=== PATIENT | female | born 1960 | race Caucasian/White ===

== ENCOUNTER → 2020-12-22 | Outpatient (CLI) | payer MEDICARE, OTHER ==
[~2020-12-22] MED LIST: AUGMENTIN 875-1 EACH PO; BENTYL 10MG CAP10 MG PO; CORDARONE 200M200 MG PO; COZAAR50 MG PO; ELIQUIS5 MG PO; FAMOTIDINE20 MG PO; FOLIC ACID1 MG PO; LOPRESSOR50 MG PO; NORCO 5-325 TA1 EACH PO; RANITIDINE HCL150 MG PO; ZANTAC 150 MG150 MG PO; ZETIA10 MG PO; ZOFRAN ODT 4 MG4 MG PO
== END ==
LOC: EXRD 11-26 15:00
DX: M81.0 Age-related osteoporosis without current pathological fracture (principal); C50.812 Malignant neoplasm of overlapping sites of left female breast; R11.2 Nausea with vomiting, unspecified; Z17.0 Estrogen receptor positive status [ER+]; Z87.891 Personal history of nicotine dependence
CPT/HCPCS: 77080

== ENCOUNTER 2021-04-12 11:59 | Emergency (ER) | payer MEDICARE, OTHER ==
[~2021-04-12 11:59] MED LIST changes: -BENTYL 10MG CAP10 MG PO; -ZOFRAN ODT 4 MG4 MG PO
[2021-04-12 12:55] LABS: RED BLOOD COUNT 4.86 M/UL (4.00-5.10); WHITE BLOOD COUNT 6.9 K/UL (4.5-11.0)
[2021-04-12 13:13] LABS: BUN/CREATININE RATIO 18 (0-10)
[2021-04-12] MEDS ORDERED: ZOFRAN ODT 4 MG4 MG PO (19:16)
[2021-04-12] MEDS ORDERED: BENTYL 10MG CAP10 MG PO (19:16)
== END 2021-04-12 19:25 | disposition home or self-care (01) ==
LOC: ER1 11:59
PROVIDERS: Emergency Medicine
DX: K52.9 Noninfective gastroenteritis and colitis, unspecified (principal); I48.91 Unspecified atrial fibrillation; E11.9 Type 2 diabetes mellitus without complications; I10 Essential (primary) hypertension; Z20.822 Contact with and (suspected) exposure to COVID-19; Z90.49 Acquired absence of other specified parts of digestive tract; Z90.89 Acquired absence of other organs; Z85.3 Personal history of malignant neoplasm of breast
CPT/HCPCS: 0240U; 71045; 80053; 81001; 83605; 83690; 85025; 93005; 96374; 99284; J2405; Q9967

== ENCOUNTER → 2021-05-19 | Outpatient (CLI) | payer MEDICARE, OTHER ==
[~2021-05-19] MED LIST changes: +BENTYL 10MG CAP10 MG PO; +ZOFRAN ODT 4 MG4 MG PO
== END ==
LOC: HEART 5 09:40
DX: R06.02 Shortness of breath (principal); Z79.899 Other long term (current) drug therapy
CPT/HCPCS: 94010; 94729

== ENCOUNTER 2022-01-13 22:56 | Emergency (ER) | payer MEDICARE, OTHER | END 2022-01-14 03:27 | disposition home or self-care (01) | LOC: ER1 22:56 | DX: S09.90XA Unspecified injury of head, initial encounter (principal); S30.0XXA Contusion of lower back and pelvis, initial encounter; S20.212A Contusion of left front wall of thorax, initial encounter; I48.91 Unspecified atrial fibrillation; Z85.3 Personal history of malignant neoplasm of breast; Z88.5 Allergy status to narcotic agent; W01.198A Fall on same level from slipping, tripping and stumbling with subsequent striking against other object, initial encounter; Y92.89 Other specified places as the place of occurrence of the external cause | CPT/HCPCS: 70450; 71045; 72125; 72131; 99284 ==

== ENCOUNTER → 2022-03-10 | Outpatient (CLI) | payer MEDICARE, OTHER | LOC: KOH-I 14:26 | DX: M53.3 Sacrococcygeal disorders, not elsewhere classified (principal) | CPT/HCPCS: 73522 ==

== ENCOUNTER → 2022-03-15 | Outpatient (CLI) | payer MEDICARE, OTHER | LOC: KOH-I 12:59 | DX: E04.2 Nontoxic multinodular goiter (principal) | CPT/HCPCS: 76536 ==

== ENCOUNTER → 2022-05-13 | Outpatient (CLI) | payer MEDICARE, OTHER | LOC: KOH-I 13:25 | DX: M25.571 Pain in right ankle and joints of right foot (principal); M79.89 Other specified soft tissue disorders | CPT/HCPCS: 73610 ==